=== PATIENT | male | born 1935 | race Caucasian/White ===

== ENCOUNTER 2016-05-22 10:34 | Day surgery (SDC) | payer MEDICARE ==
[~2016-05-22 10:34] MED LIST: LACTATED RINGERS 1,000 ML IV SCH
[2016-05-22] MEDS ORDERED: PROPOFOL 20 ML IV ONE (11:04)
[2016-05-22] MEDS ORDERED: FENTANYL 250 MCG/5 ML AMP ONE (11:05)
[2016-05-22] MEDS ORDERED: LACTATED RINGERS 1,000 ML ONE (11:19)
[2016-05-22] MEDS ORDERED: IV START KIT ONE (11:19)
[2016-05-22] MEDS ORDERED: ALBUTEROL SULFATE MDI 60 PUFFS/INHALER IH ONE ×2 (11:55→11:56)
--- NOTE | 2016-05-27 11:45 | SURGPATH ---
[facility] [address] [place] [id number] Patient Name: KELLY DE LA VEGA MR#: [id number] : 1935 Gender: M Specimen #: [id number] Collected: 05/22/2016 Received: 05/24/2016 Reported: 05/27/2016 Submitting Phys: BEV WHITT Copy To Phys: [facility] CRU[facility] Clinical History / Pre-Operative Diagnosis: HISTORY OF COLON POLYPS Specimen Source / Surgical Procedure Performed: SPLENIC FLEXURE POLYP Interpretation: COLON, SPLENIC FLEXURE, BIOPSY: - HYPERPLASTIC POLYP. - NO EVIDENCE OF ADENOMATOUS CHANGE OR MALIGNANCY. Electronically Signed Out Josr Watts M.D., Ph.D. Gross Description: The specimen is received in a formalin filled container labeled with the patient's name and "splenic flexure". A polypoid galdamez biopsy is 0.5 x 0.3 x 0.2 cm. Totally embedded in one cassette. Enrique Mcgrath, P.A. Microscopic Description: Examination of multiple levels from the colon biopsy at the splenic flexure shows a single fragment of colonic mucosa with dilated and hyperplastic glands. There is no evidence of adenomatous change or malignancy. 1: 74257 K63.5
== END 2016-05-22 12:45 | disposition home or self-care (01) ==
LOC: SDC 10:34
PROVIDERS: ATTEND Internal Medicine Gastroenterology
PROC: 0DBL8ZX Excision of Transverse Colon, Via Natural or Artificial Opening Endoscopic, Diagnostic (ICD-10-PCS; principal; 2016-05-22)
DX: Z12.11 Encounter for screening for malignant neoplasm of colon (principal); K63.5 Polyp of colon; K57.30 Diverticulosis of large intestine without perforation or abscess without bleeding; Z86.010 Personal history of colon polyps; I10 Essential (primary) hypertension; E78.5 Hyperlipidemia, unspecified; K21.9 Gastro-esophageal reflux disease without esophagitis; J44.9 Chronic obstructive pulmonary disease, unspecified; Z88.8 Allergy status to other drugs, medicaments and biological substances